=== PATIENT | female | born 1955 | race Two or more races ===

== ENCOUNTER 2017-07-08 07:26 | Day surgery (SDC) | payer OTHER ==
[2017-07-08] MEDS: PHENYLephrine 2.5% 15 ML OPH OPER (09:05)
[2017-07-08] MEDS: MOXIFLOXACIN 0.5% 3 ML OPH OPER (09:05)
[2017-07-08] MEDS: PREDNISOLONE ACET 1% 5 ML OPH OPER (09:06)
[2017-07-08] MEDS: SOD CHLORIDE 0.9% 1,000 ML IV (09:06)
[2017-07-08] MEDS: TROPICAMIDE 1% 3 ML OPH OPER (09:06)
[2017-07-08] MEDS: PROPARACAINE 0.5% 15 ML OPH OPER (09:06)
[2017-07-08] MEDS ORDERED: TOBRAMYCIN 0.3% 3.5 GM OPH OINT (10:26)
[2017-07-08] MEDS ORDERED: EPINEPHrine 1 MG INJ (10:26)
[2017-07-08] MEDS ORDERED: ONDANSETRON 4 MG INJ (10:53)
[2017-07-08] MEDS ORDERED: LIDOCAINE 100 MG SYRINGE (10:53)
[2017-07-08] MEDS ORDERED: PROPOFOL 20 ML (10:53)
[2017-07-08] MEDS ORDERED: FENTAnyl 50 MCG/ML VIAL (11:14)
[2017-07-08] MEDS: ACETAMINOPHEN 500 MG TAB PO (12:15)
== END 2017-07-08 13:00 | disposition home or self-care (01) ==
LOC: SDS 07:26
DX: H25.11 Age-related nuclear cataract, right eye (principal); E78.00 Pure hypercholesterolemia, unspecified; E66.09 Other obesity due to excess calories; F33.1 Major depressive disorder, recurrent, moderate
CPT/HCPCS: 66984